=== PATIENT | female | born 1940 | race Caucasian/White ===

== ENCOUNTER 2017-07-02 09:33 | Inpatient (IN) | payer OTHER ==
[2017-06-12 12:54] VITALS: BMI 40.0
--- NOTE | 2017-06-12 13:29 | PAT Medication Instructions ---
Service Date Jun 12, 2017. Current Home Medication List Albuterol Hfa (Ventolin Hfa), 2 PUFFS INH Q6H PRN for PRN Amitriptyline Hcl (Elavil), 10 MG PO QPM Calcium Carbonate-Vitamin D (Calcium + D), 1 TAB PO QAM Cyclosporine (Ophth) (Restasis), 1 DROP OP BID Fish Oil ([place]-3), 1 CAP PO BID Flurbiprofen (Ansaid), 100 MG PO BID Fluticasone Propionate (Nasal) (Flonase Allergy Relief), 2 SPRAYS INTNAS PRN Furosemide (Lasix), 40 MG PO QAM Gabapentin (Neurontin), 400 MG PO AM/PM Gabapentin (Neurontin), 800 MG PO HS Quvlotnsuds-Flnrdysnqrl-Ykf C- (Glucosamine Chondroitin), 1 TAB PO BID Lorazepam (Ativan), 0.5 MG PO QPM Losartan Potassium (Cozaar), 50 MG PO QAM Multivitamin (Multivitamin), 1 TAB PO QAM Omeprazole (Prilosec), 20 MG PO QAM Potassium Chloride (Klor-Con Sprinkle), 10 MEQ PO QAM Vitamin E (Alph-E), 400 UNITS PO QAM [Areds], 1 TAB PO BID [Vitamin D], 1 TAB PO QAM Medication Instructions For Your Scheduled Surgery - Hold the following medications 2 weeks prior to surgery: Vitamin E (Alph-E), 400 UNITS PO QAM [Areds], 1 TAB PO BID Ltimbypehut-Ahbrafvzyyf-Mvf C- (Glucosamine Chondroitin), 1 TAB PO BID Fish Oil ([place]-3), 1 CAP PO BID - Check with surgeon for instructions: Flurbiprofen (Ansaid), 100 MG PO BID - Hold the following medications the morning of surgery: Calcium Carbonate-Vitamin D (Calcium + D), 1 TAB PO QAM Furosemide (Lasix), 40 MG PO QAM Losartan Potassium (Cozaar), 50 MG PO QAM Multivitamin (Multivitamin), 1 TAB PO QAM Potassium Chloride (Klor-Con Sprinkle), 10 MEQ PO QAM [Vitamin D], 1 TAB PO QAM - Take the following medications the morning of surgery with a sip of water: Omeprazole (Prilosec), 20 MG PO QAM Gabapentin (Neurontin), 400 MG PO AM/PM Fluticasone Propionate (Nasal) (Flonase Allergy Relief), 2 SPRAYS INTNAS PRN ( if needed) Cyclosporine (Ophth) (Restasis), 1 DROP OP BID Albuterol Hfa (Ventolin Hfa), 2 PUFFS INH Q6H PRN for PRN (if needed) - Take the following medications as scheduled the night before surgery: Lorazepam (Ativan), 0.5 MG PO QPM Gabapentin (Neurontin), 400 MG PO AM/PM Gabapentin (Neurontin), 800 MG PO HS Fluticasone Propionate (Nasal) (Flonase Allergy Relief), 2 SPRAYS INTNAS PRN ( if needed) Cyclosporine (Ophth) (Restasis), 1 DROP OP BID Amitriptyline Hcl (Elavil), 10 MG PO QPM Albuterol Hfa (Ventolin Hfa), 2 PUFFS INH Q6H PRN for PRN (if needed) If you have any questions please call us at [phone] or [phone] or [phone]
--- NOTE | 2017-06-12 14:22 | DIAGNOSTIC IMAGING REPORT ---
TWO VIEW CHEST CLINICAL HISTORY: Preoperative examination. FINDINGS: PA and lateral chest radiographs are obtained. No prior studies are available for comparison at the time of dictation. The heart is top normal for projection. The mediastinal contour is within normal limits. The lungs and pleural spaces are clear. There is no pneumothorax. The skeletal structures are osteopenic. Degenerative change and scoliosis are noted in the thoracic spine. Cholecystectomy clips are identified in the right upper quadrant. IMPRESSION: No active disease in the chest. Electronically signed by: Josiah Drummond M.D. 06/12/2017 2:21 PM Dictated Date/Time: 06/12/2017 2:19 PM
[2017-06-12 15:51] LABS: CREATININE 0.82 mg/dl (0.60-1.20); POTASSIUM 4.3 mmol/L (3.5-5.1)
[2017-06-12 16:20] LABS: BASO % 0.7 %; BASO ABS # 0.04 K/uL (0-0.2); EOS % 5.5 %; EOS ABS # 0.31 K/uL (0-0.5); HEMATOCRIT 41.1 % (37-47); HEMOGLOBIN 14.8 g/dL (12.0-16.0); IG# 0.01 K/uL (0.00-0.02); LYMPH % 31.9 %; MEAN CELL VOLUME 94.3 fL (80-100); MEAN CORPUSCULAR HEMOGLOBIN 33.9 pg (25-34); MONO % 11.2 %; MONO ABS # 0.63 K/uL (0.11-0.59); NEUT % 50.5 %; NEUT ABS # 2.85 K/uL (1.4-6.5); PLATELET COUNT 211 K/uL (130-400); WHITE BLOOD COUNT 5.64 K/uL (4.8-10.8)
[~2017-07-02] VITALS: Ht 152.4 cm; Wt 92.6 kg
[~2017-07-02 09:33] MED LIST: AMT50 PO; AREDS PO; CALC600T9 PO; CEFAZOLIN 2000MG IV PUSH 15 ML IV SCH; CYCL0.052 OP; FLUR100T PO; FLUT0.15 INTNAS; FRS/40 PO; GABA-1220 PO; GABA800T PO; GLUCTAB7 PO; LACTATED RINGER'S 1000ML 1,000 ML IV SCH; LORA-741 PO; LOSA50TA6 PO; MULT-506 PO; OMEG10007 PO; POTA1CAP53 PO; PRLSR20 PO; VITA400C28 PO; VITAMIN D PO; VNTHFA/IN INH
[2017-07-02 10:00] VITALS: BP 170/88; PULSE 88; TEMP 36.7; O2SAT 97; Ht 152.4 cm; Wt 92.6 kg
[2017-07-02] MEDS ORDERED: TRAM-10 PO (10:20)
[2017-07-02] MEDS ORDERED: FENTANYL CITRATE INJ 50 MCG/1 ML 2 ML VIAL ONE ×4 (11:37→13:57)
[2017-07-02] MEDS ORDERED: MIDAZOLAM HCL 1 MG/ML 2ML VIAL ONE (11:37)
--- NOTE | 2017-07-02 11:47 | History & Physical Bridge Note ---
H&P Re-Evaluation Bridge Note: I have examined the patient, reviewed the History & Physical and in the interval since the performance of the History & Physical I have noted the following changes of clinical significance: No changes noted
--- NOTE | 2017-07-02 11:48 | History and Physical ---
History & Physical Date Jul 02, 2017. Chief Complaint Back and leg pain History of Present Illness The patient is a 77 year old female with complaints of back and leg pain Additional History Hepatic Disease: No Endocrine Disorder: No Kidney Disease: No Hypertension: Yes Heart Disease: No Bleeding Tendencies: No Infectious Diseases: No Allergies Coded Allergies: Sulfa Antibiotics (Verified Allergy, Intermediate, HIVES ALL OVER, 07/02/17 ) Home Medications Scheduled Amitriptyline Hcl (Elavil), 10 MG PO QPM Calcium Carbonate-Vitamin D (Calcium + D), 1 TAB PO QAM Cyclosporine (Ophth) (Restasis), 1 DROP OP BID Fish Oil ([place]-3), 1 CAP PO BID Flurbiprofen (Ansaid), 100 MG PO BID Fluticasone Propionate (Nasal) (Flonase Allergy Relief), 2 SPRAYS INTNAS PRN Furosemide (Lasix), 40 MG PO QAM Gabapentin (Neurontin), 400 MG PO AM/PM Gabapentin (Neurontin), 800 MG PO HS Ejxsjjionlq-Onmsprmulht-Evz C- (Glucosamine Chondroitin), 1 TAB PO BID Lorazepam (Ativan), 0.5 MG PO QPM Losartan Potassium (Cozaar), 50 MG PO QAM Multivitamin (Multivitamin), 1 TAB PO QAM Omeprazole (Prilosec), 20 MG PO QAM Potassium Chloride (Klor-Con Sprinkle), 10 MEQ PO QAM Vitamin E (Alph-E), 400 UNITS PO QAM [Areds], 1 TAB PO BID [Vitamin D], 1 TAB PO QAM Scheduled PRN Albuterol Hfa (Ventolin Hfa), 2 PUFFS INH Q6H PRN for PRN Tramadol (Ultram), 50 MG PO Q4H PRN for Pain Physical Examination Skin: warm/dry, no rash Eyes: normal inspection, EOMI, sclerae normal ENT: normal ENT inspection, pharynx normal Head: normocephalic, atraumatic Neck: supple, no adenopathy, trachea midline Respiratory/Chest: lungs clear, normal breath sounds, no respiratory distress Cardiovascular: regular rate, rhythm, no edema, no murmur Abdomen / GI: normal bowel sounds, non tender Back: normal inspection Extremities: normal inspection, normal range of motion Neurologic/Psych: no motor/sensory deficits, alert, normal reflexes, oriented x 3 Diagnosis Lumbar spinal stenosis with spondylolisthesis Plan of Treatment L4-S1 decompression and fusion possible L3-4
[2017-07-02] MEDS ORDERED: BACITRACIN 50000 UNIT VIAL ONE (12:05)
[2017-07-02] MEDS ORDERED: BUPIVACAINE/EPINEPHRINE 0.5% MPF 1:200,000 30 ML VIAL ONE (12:05)
[2017-07-02] MEDS ORDERED: HYDROmorphone INJ 2 MG/ML SYR/VIAL ONE ×2 (12:46→14:16)
[2017-07-02] MEDS ORDERED: EpHEDrine SULFATE INJ 50 MG/ML AMP IV PRN (13:00)
[2017-07-02] MEDS ORDERED: MoRPHine SULFATE 10 MG/ML CARP/VIAL IV PRN (13:00)
[2017-07-02] MEDS ORDERED: ONDANSETRON INJ 2 MG/ML 2 ML VIAL IV PRN ×2 (13:00→14:15)
[2017-07-02] MEDS ORDERED: ATROPINE SULFATE 0.1 MG/ML 5ML SYR IV PRN (13:00)
[2017-07-02] MEDS ORDERED: KETOROLAC TROMETHAMINE 30 MG/ML VIAL ONE ×2 (14:00→14:18)
[2017-07-02] MEDS ORDERED: PROPOFOL IV EMULSION 10 MG/ML 20 ML VIAL IV ONE (14:00)
[2017-07-02] MEDS ORDERED: ONDANSETRON INJ 2 MG/ML 2 ML VIAL ONE ×2 (14:00→14:18)
[2017-07-02] MEDS ORDERED: RANITIDINE HCL 25 MG/ML INJ ONE (14:00)
[2017-07-02] MEDS ORDERED: DEXAMETHASONE SOD INJ 4 MG/ML VIAL ONE (14:00)
[2017-07-02] MEDS ORDERED: LIDOCAINE HCL 2% 2 ML VIAL (20MG/ML) ONE (14:00)
[2017-07-02] MEDS ORDERED: FLOSEAL HEMOSTATIC MATRIX 10ML TOP ONE (14:05)
[2017-07-02] MEDS ORDERED: DO NOT ADMINISTER PNEUMOCOCCAL VACCINE PRN (14:15)
[2017-07-02] MEDS ORDERED: DC PCA PRN (14:15)
[2017-07-02] MEDS ORDERED: SODIUM CHLORIDE 0.9% 1000ML 1,000 ML IV SCH (14:15)
[2017-07-02] MEDS ORDERED: DO NOT ADMINISTER FLU VACCINE PRN (14:15)
[2017-07-02] MEDS ORDERED: CEFAZOLIN IV 2,000 MG in DEXTROSE 5% 50ML 50 ML IV SCH (14:15)
[2017-07-02] MEDS ORDERED: ACETAMINOPHEN IV 100 ML IV PRN (14:15)
[2017-07-02] MEDS ORDERED: LORAZEPAM 0.5 MG TAB PO PRN (14:15)
[2017-07-02] MEDS ORDERED: SOD PHOSPHATE/SOD BIPHOSPHATE ENEMA 132 ML BTL PR PRN (14:15)
[2017-07-02] MEDS ORDERED: ALBUTEROL HFA 8 GM INHALER INH PRN (14:15)
[2017-07-02] MEDS ORDERED: NALOXONE HCL 0.4 MG/1 ML VIAL/CARP IV PRN (14:15)
[2017-07-02] MEDS ORDERED: PROMETHAZINE HCL INJ 12.5 MG in SODIUM CHLORIDE 0.9% 50ML 50 ML IV PRN (14:15)
[2017-07-02] MEDS ORDERED: METOCLOPRAMIDE HCL INJ 5 MG/ML 2 ML VIAL IV PRN (14:15)
[2017-07-02] MEDS ORDERED: LORAZEPAM INJ 0.5 MG in SYRINGE 0 ML IV PRN (14:15)
[2017-07-02] MEDS ORDERED: FAMOTIDINE 20 MG TAB PO PRN (14:15)
[2017-07-02] MEDS ORDERED: MAGNESIUM HYDROXIDE SUSP 30 ML UDC PO PRN (14:15)
[2017-07-02] MEDS ORDERED: hydrOXYzine HCL 25 MG TAB PO PRN (14:15)
[2017-07-02] MEDS ORDERED: HYDROmorphone HCL 0.5MG/ML 50 ML CASSETTE IV PRN (14:15)
[2017-07-02] MEDS ORDERED: ALUMINUM/MAGNESIUM SUSP 30 ML UDC PO PRN (14:15)
[2017-07-02] MEDS ORDERED: BISACODYL 10 MG SUPP PR PRN (14:15)
--- NOTE | 2017-07-02 14:15 | [facility] Operative Report ---
Operative Report Operative Date Jul 02, 2017. Pre-Operative Diagnosis Lumbar Spinal Stenosis Post-Operative Diagnosis Same as preop Procedure(s) Performed 1. Lumbar decompression medial facetectomy foraminotomy L3-4 L4-5 L5-S1. #2 posterior spinal fusion L4-5 L5-S1. #3 placement posterior segmental instrumentation L4-5 L5-S1. #4 placement of locally harvested Camp's Artegraft in the posterior lateral gutters. #5 placement of infuse: Sponge combined with master graft in the posterior lateral gutters. Surgeon Dr. La Fashion Marketer Surgeon(s) Jenny Diana PA-C Estimated Blood Loss 175Ml Findings Severe spinal stenosis Specimens none per surgeon Anesthesia Type General Description of Procedure Patient was met with preoperatively case discussed all questions addressed. After informed consent obtained patient was taken to the operative suite underwent intubation and placed in a prone position on the Tanner table on top of the Julian frame. All bony prominences were well-padded eyes inspected to ensure no external pressure placed upon them. This point the lumbar spine was prepped and draped in normal sterile fashion. Sharp dissection with the assistance of Bovie cautery was then performed down to and exposing the lamina and transverse processes L4-L5 and sacral ala bilaterally. From a caudal cephalad fashion complete laminectomy of L5 L4 and partial laminectomy of L3 was performed addressing severe lateral recess and foraminal stenosis. Pedicle screws were then placed in L4-L5 S1 levels bilaterally with the assistance of fluoroscopy and appropriate size lauren locked in position. The transverse processes of L4-L5 and sacral ala burred to subcortical bleeding bone. Infuse collagen sponge mesh graft and locally harvested morselized autograft placed in the posterior lateral gutters. 15 round SALVATORE drain inserted. Incision was then closed with 1 Vicryl fascia 2-0 Vicryl subcutaneously and 4-0 Monocryl for final skin closure Steri-Strips sterile dressings placed. Patient will continue to PACU stable condition. Please note Jenny Marroquin was present throughout the entire procedure involved in patient positioning complex portions of the surgery and fashion closure. I attest to the content of the Intraoperative Record and any orders documented therein. Any exceptions are noted below.
[2017-07-02] MEDS ORDERED: NEOSTIGMINE METHYLSULFATE 1 MG/ML 10ML VIAL ONE (14:18)
[2017-07-02] MEDS ORDERED: GLYCOPYRROLATE INJ 0.2 MG/ML VIAL ONE (14:18)
--- NOTE | 2017-07-02 14:27 | DIAGNOSTIC IMAGING REPORT ---
LUMBAR SPINE 2 OR 3 VIEW CLINICAL HISTORY: L4-S1 DECOMPRESSION/FUSION TECHNIQUE: Image intensifier COMPARISON STUDY: None FINDINGS: Image intensifier was utilized for operative assistance for a fusion of L4-L5 and S1. IMPRESSION: Image intensifier assistance for a fusion at L4-L5 and S1. The above report was generated using voice recognition software. It may contain grammatical, syntax or spelling errors. Electronically signed by: Tom Fong M.D. 07/02/2017 2:26 PM Dictated Date/Time: 07/02/2017 2:25 PM
[2017-07-02] MEDS ORDERED: HYDROmorphone HCL 0.5MG/ML 50 ML CASSETTE ONE (14:34)
[2017-07-02] MEDS: FENTANYL CITRATE INJ 50 MCG/1 ML 2 ML VIAL IV PRN ×2 (14:50→14:56)
--- NOTE | 2017-07-02 15:20 | Anesthesiology Progress Note ---
Anesthesia Post Op Note Date & Time Jul 02, 2017 at 15:20 Vital Signs Pain Intensity: 4 Vital Signs Past 12 Hours Date Time Temp Pulse Resp B/P (MAP) Pulse Ox O2 Delivery O2 Flow Rate FiO2 07/02/17 15:10 36.4 78 16 165/89 97 Nasal Cannula 3 07/02/17 15:00 75 16 167/67 97 Oxymask 3 07/02/17 14:50 75 16 175/92 97 Oxymask 5 07/02/17 14:40 76 16 164/88 96 Oxymask 5 07/02/17 14:31 36.5 81 14 179/96 96 Oxymask 5 07/02/17 10:00 36.7 88 18 170/88 97 Room Air Notes Mental Status: alert / awake / arousable, participated in evaluation Pt Amnestic to Procedure: Yes Nausea / Vomiting: adequately controlled Pain: adequately controlled Airway Patency, RR, SpO2: stable & adequate BP & HR: stable & adequate Hydration State: stable & adequate Anesthetic Complications: no major complications apparent
[2017-07-02 15:22] VITALS: BP 149/88; PULSE 78; TEMP 36.8; O2SAT 98
[2017-07-02 15:25] VITALS: O2SAT 98
[2017-07-02] MEDS: SODIUM CHLORIDE 0.9% 1000ML 1,000 ML IV SCH ×2 (15:36→22:10)
[2017-07-02 15:58] VITALS: BP 118/75; PULSE 79; TEMP 36.6; O2SAT 99
[2017-07-02 16:19] VITALS: BP 145/81; PULSE 58; O2SAT 99
[2017-07-02] MEDS: GABAPENTIN 400 MG CAP PO SCH (18:20)
[2017-07-02] MEDS: CEFAZOLIN IV 2,000 MG in SYRINGE 0 ML IV SCH (20:00)
[2017-07-02] MEDS ORDERED: GABAPENTIN 400 MG CAP PO SCH (21:00)
[2017-07-02] MEDS: AMITRIPTYLINE HCL 10 MG TAB PO SCH (21:00)
[2017-07-02] MEDS: LORAZEPAM 0.5 MG TAB PO SCH (21:00)
[2017-07-02] MEDS: GABAPENTIN 800 MG TAB PO SCH (21:00)
[2017-07-02] MEDS: DOCUSATE SODIUM/SENNA 50/8.6MG TAB PO SCH (21:00)
[2017-07-02 23:13] VITALS: BP 110/65; PULSE 87; TEMP 36.8; O2SAT 94
[2017-07-03 03:13] VITALS: BP 103/64; PULSE 87; TEMP 36.8; O2SAT 96
[2017-07-03] MEDS: CEFAZOLIN IV 2,000 MG in SYRINGE 0 ML IV SCH (04:03)
[2017-07-03] MEDS: SODIUM CHLORIDE 0.9% 1000ML 1,000 ML IV SCH (04:09)
[2017-07-03] MEDS ORDERED: NURSING VERBAL MED ORDER ONE (05:30)
--- NOTE | 2017-07-03 05:47 | Clinical Documentation Query ---
CLINICAL DOCUMENTATION QUERY 77-y/o female who has undergone L4-S1 fusion. The H&P only states this patient as having HTN, but home medications indicate other medical issues. This patient is on Ventolin, Elavil, and Lasix. In your clinical opinion is this patient being managed for: ( ) Chronic diastolic (preserved EF) heart failure treated with diuretic and antihypertensives ( ) Asthma treated with PRN Ventolin ( ) Not Agree ( ) Other explanation of clinical findings (Please Explain) ( ) Unable to determine (Please Define) ( ) Need to Discuss The medical record reflects the following clinical findings, treatment, and risk factors. Clinical Indicators: As above. Treatment: Continued on above home medications while inpatient Risk Factors: Prescribe above home medications. Please clarify and document your clinical opinion in the progress notes and discharge summary. Terms such as "probable", "suspected", "likely", "questionable", "possible", or "still to be ruled out" are acceptable. IF IN AGREEMENT, YOU MUST DOCUMENT ABOVE DIAGNOSTIC STATEMENT IN DAILY PROGRESS NOTES AND DISCHARGE SUMMARY. This document is not part of the patient's record. Thank You, Arun Fields, DOROTHY [phone]
[2017-07-03] MEDS ORDERED: HYDROmorphone INJ 0.5 MG/0.5 ML SYR IV PRN (06:00)
[2017-07-03] MEDS ORDERED: NALOXONE HCL 0.4 MG/1 ML VIAL/CARP IV PRN (06:00)
[2017-07-03 06:52] VITALS: BP 104/60; PULSE 81; TEMP 36.8; O2SAT 95
[2017-07-03 06:52] LABS: BASO % 0.1 %; BASO ABS # 0.01 K/uL (0-0.2); EOS % 0.1 %; EOS ABS # 0.01 K/uL (0-0.5); HEMATOCRIT 33.2 % (37-47); HEMOGLOBIN 11.8 g/dL (12.0-16.0); IG# 0.03 K/uL (0.00-0.02); LYMPH % 11.1 %; LYMPH ABS # 1.14 K/uL (1.2-3.4); MEAN CELL VOLUME 92.5 fL (80-100); MEAN CORPUSCULAR HEMOGLOBIN 32.9 pg (25-34); MEAN CORPUSCULAR HGB CONC 35.5 g/dl (32-36); MEAN PLATELET VOLUME 10.1 fL (7.4-10.4); MONO % 11.6 %; MONO ABS # 1.19 K/uL (0.11-0.59); NEUT % 76.8 %; NEUT ABS # 7.85 K/uL (1.4-6.5); PLATELET COUNT 180 K/uL (130-400); RED CELL DISTRIBUTION WIDTH CV 12.9 % (11.5-14.5); RED CELL DISTRIBUTION WIDTH SD 43.6 fL (36.4-46.3); WHITE BLOOD COUNT 10.23 K/uL (4.8-10.8)
[2017-07-03 07:21] LABS: CALCIUM 8.2 mg/dl (8.5-10.1); CREATININE 0.8 mg/dl (0.60-1.20); POTASSIUM 3.8 mmol/L (3.5-5.1)
[2017-07-03] MEDS: GABAPENTIN 400 MG CAP PO SCH ×2 (08:13→17:01)
[2017-07-03] MEDS: LOSARTAN POTASSIUM 50 MG TAB PO SCH (08:13)
[2017-07-03] MEDS: PANTOprazole SOD 40 MG TAB PO SCH (08:13)
[2017-07-03] MEDS: FUROSEMIDE 40 MG TAB PO SCH (08:14)
[2017-07-03] MEDS: ACETAMINOPHEN 500 MG TAB PO PRN ×2 (08:17→16:26)
[2017-07-03] MEDS ORDERED: RXC5 PO (11:06)
--- NOTE | 2017-07-03 11:07 | Discharge Instructions ---
Discharge Instructions Date of Service Jul 03, 2017. Admission Reason for Admission: Spinal Stenosis Discharge Discharge Diagnosis / Problem: lumbar stenosis Discharge Goals Goal(s): Improve function Activity Recommendations Activity Limitations: per Instructions/Follow-up section . Instructions / Follow-Up Instructions / Follow-Up ACTIVITY RECOMMENDATIONS: SELF CARE INSTRUCTIONS AFTER THORACIC/LUMBAR FUSIONS 1. You may walk to your tolerance. It is good exercise for your legs and back. Expect some back and intermittent leg aches and pains. 2. You may perform "counter-top" level activities (make a sandwich, sahil with a project, etc.). 3. No bending or lifting of more than 10 pounds or back twisting of any nature (roll like a log when turning in bed). 4. You may ride in a car for 20-30 minutes at a time. No driving until after your first visit with your doctor. 5. Frequent changes of position and restricting sitting to 30 minutes at a time will help limit the amount of back spasms and stiffness you may experience. 6. You may discontinue the use of ambulatory aids (cane, crutches, etc.) once your strength and confidence allow. 7. You may air pollution control engineer the shower and let water strike your incision when you arrive home at least once daily. Do not take a tub bath, sit in a hot tub or go into a swimming pool until after your first recheck in the office. SPECIAL CARE INSTRUCTIONS: VERY IMPORTANT TO READ AND REVIEW A. Your surgical incision has been closed with a cosmetic suture under the skin that will dissolve in about 6 weeks. In 14 days, you can use a pair of clean scissors and cut the suture that is left outside of the skin at the ends of your incision. 1. The small skin tapes can be removed 7 days after surgery if they have not fallen off by that point. 2. You may keep the wound open to air as much as possible to promote healing after post-op day number 5 unless told otherwise by your doctor. 3. If you think the wound looks like it is becoming infected (redness or worsening drainage) and/or you are experiencing fever, chill or worsening back pain and muscle spasms, contact the office so that we may evaluate you as soon as possible. B. Complications are uncommon, but please contact us if you have any signs or symptoms of: 1. wound infection (fever higher than 102.5 degrees F, redness, separation of wound, drainage, or increasing pain from the incision) 2. blood clots in legs (pain, swelling, redness and warmth in legs) 3. urinary tract infection (fever higher than 102.5 degrees F, burning upon urination or increased frequency of urination) 4. nerve problems (inability to walk on your toes or heels, numbness, loss of bowel or bladder control) 5. any other symptoms that concern you C. Please call the office at if you have any concerns or questions about your operation or recovery. D. No smoking! Smoking drastically decreases the chance of a solid fusion. E. Do not take any anti-inflammatory medications (Indocin, Advil, Motrin, Aspirin, Naprosyn, etc.) as these may inhibit the chance of a solid fusion. Tylenol is okay to take for pain. MANAGING PAIN AFTER SPINAL SURGERY 1. Narcotic medication is intended for short-term use and will be provided for surgical pain. Surgical pain usually lasts for a period of 4-6 weeks. Narcotic medication includes Percocet, Vicodin, Darvocet, Tylenol #3 or Lortab. 2. Longer-term pain is more appropriately treated with non-narcotic medication such as Tylenol ES. 3. Muscle spasm is not appropriately treated with narcotics. Muscle relaxers such as Soma, Flexeril or Skelaxin can be used along with Tylenol ES. 4. Remember that we all live with some "aches and pains". This is not unusual or uncommon after an injury or as we get older. a. Back pain is expected and may include muscle spasms for 4 to 6 weeks after surgery. The pain should gradually improve. If the pain worsens for no apparent reason, please contact the office. b. Intermittent leg pain may also be experienced and should not be concerned about unless it worsens for no apparent reason. If so, please contact the office. 5. We will provide appropriate medication within the normal guidelines of their prescribed use. We will also be very cautious and aware of potential abuse and extended duration of patients' medication needs. a. Pain medications are for your comfort and to assist with sleep and rest so that the tissue can heal. They are not provided in order to return to normal activity and should not be used through the day. To do so or worsening pain at night can result from ongoing tissue damage and development of tolerance to the prescribed medicine. 6. Please allow 2-3 days to process refills. Prescriptions will not be mailed but must be picked up at the office. FOLLOW UP VISIT: Keep your scheduled follow-up appointment. Any questions, please call the office at . Current Hospital Diet Patient's current hospital diet: Regular Diet Discharge Diet Recommended Diet: Regular Diet Procedures Procedures Performed: 1. Lumbar decompression medial facetectomy foraminotomy L3-4 L4-5 L5-S1. #2 posterior spinal fusion L4-5 L5-S1. #3 placement posterior segmental instrumentation L4-5 L5-S1. #4 placement of locally harvested Camp's Artegraft in the posterior lateral gutters. #5 placement of infuse: Sponge combined with master graft in the posterior lateral gutters. Pending Studies Studies pending at discharge: no Medical Emergencies . Who to Call and When: Medical Emergencies: If at any time you feel your situation is an emergency, please call 911 immediately. . Non-Emergent Contact Non-Emergency issues call your: Primary Care Provider . "Provider Documentation" section prepared by Charli La. .
[2017-07-03] MEDS: TRAMADOL HCL 50 MG TAB PO PRN ×3 (11:17→21:02)
--- NOTE | 2017-07-03 11:37 | Progress Note ---
Progress Note Date of Service Jul 03, 2017. Progress Note Patient's pain is well controlled. She is in a chair at the bedside. She was with her family. On exam she is excellent strength testing appears comfortable. Assessment status post lumbar decompression fusion per plan at this time will continue physical therapy advance her bowel regiment and anticipate discharge home this weekend.
[2017-07-03 15:27] VITALS: BP 111/68; PULSE 86; TEMP 37.3; O2SAT 97
[2017-07-03] MEDS: DOCUSATE SODIUM/SENNA 50/8.6MG TAB PO SCH (21:00)
[2017-07-03] MEDS: LORAZEPAM 0.5 MG TAB PO SCH (21:01)
[2017-07-03] MEDS: AMITRIPTYLINE HCL 10 MG TAB PO SCH (21:27)
[2017-07-03] MEDS: GABAPENTIN 800 MG TAB PO SCH (21:27)
[2017-07-03 22:50] VITALS: BP 122/71; PULSE 88; TEMP 37.3; O2SAT 94
[2017-07-04] MEDS ORDERED: NURSING VERBAL MED ORDER ONE (03:45)
[2017-07-04] MEDS: OXYCODONE HCL IR 5 MG TAB (IMMEDIATE RELEASE) PO PRN ×6 (04:20→23:18)
[2017-07-04] MEDS ORDERED: POLYETHYLENE (MIRALAX) 17 GM PACK PO SCH (06:00)
--- NOTE | 2017-07-04 07:38 | Orthopedic Progress Note ---
Orthopedic Progress Note Date of Service Jul 04, 2017. Subjective Post OP Day: 2 Reports: feeling well Additional Notes: Patient is postoperative day 2 lumbar decompression fusion. She is doing well. Radicular leg pain has resolved. Back pain is controlled. SALVATORE drain output last shift was 65 cc. She has had a bowel movement within the past 24 hours. She is ambulating over 500 feet in physical therapy. Objective calves soft nontender, N/V intact, A&O x3, toes mobile She is lying in bed. She is in no obvious distress. Calves are soft nontender bilaterally. Neurovascular intact bilateral lower extremities. Lumbar dressing is clean dry and intact. Date Time Temp Pulse Resp B/P (MAP) Pulse Ox O2 Delivery O2 Flow Rate FiO2 07/03/17 23:45 Room Air 07/03/17 22:50 37.3 88 16 122/71 (88) 94 Room Air 07/03/17 15:45 Room Air 07/03/17 15:27 37.3 86 18 111/68 (82) 97 Room Air 07/03/17 08:00 Room Air Assessment & Plan Assessment: Postoperative day 2 lumbar decompression fusion Plan: We will maintain SALVATORE drain today. Continue with physical therapy. Continue with pain control. DVT prophylaxis is in the form of teds and SCDs. Anticipate discharge home tomorrow. Inhouse Planning Pain Management: Oxy IR DVT Prophylaxis: TEDs, SCDs Discharge Planning Discharge Planning: home
[2017-07-04 07:40] VITALS: BP 108/67; PULSE 86; TEMP 37.2; O2SAT 94
[2017-07-04] MEDS: FUROSEMIDE 40 MG TAB PO SCH (09:05)
[2017-07-04] MEDS: PANTOprazole SOD 40 MG TAB PO SCH (09:06)
[2017-07-04] MEDS: LOSARTAN POTASSIUM 50 MG TAB PO SCH (09:06)
[2017-07-04] MEDS: GABAPENTIN 400 MG CAP PO SCH ×2 (09:30→16:42)
[2017-07-04 15:06] VITALS: BP 132/78; PULSE 93; TEMP 37.1; O2SAT 93
[2017-07-04] MEDS: DOCUSATE SODIUM/SENNA 50/8.6MG TAB PO SCH (20:32)
[2017-07-04] MEDS: AMITRIPTYLINE HCL 10 MG TAB PO SCH (20:33)
[2017-07-04] MEDS: GABAPENTIN 800 MG TAB PO SCH (20:33)
[2017-07-04] MEDS: LORAZEPAM 0.5 MG TAB PO SCH (20:33)
[2017-07-04 22:47] VITALS: BP 116/68; PULSE 97; TEMP 37.3; O2SAT 93
[2017-07-05] MEDS: OXYCODONE HCL IR 5 MG TAB (IMMEDIATE RELEASE) PO PRN ×2 (05:42→10:07)
[2017-07-05 06:55] VITALS: BP 111/73; PULSE 81; TEMP 37.3; O2SAT 93
--- NOTE | 2017-07-05 08:00 | Orthopedic Progress Note ---
Orthopedic Progress Note Date of Service Jul 05, 2017. Subjective Post OP Day: 3 Reports: feeling well Additional Notes: Evette's postoperative day 3 lumbar decompression fusion. She is doing fantastic. No radicular leg pain. Back pain is controlled. SALVATORE drain output last shift was 30 cc. She is AMBULATING 275 feet yesterday physical therapy plus the hallways. She has no other complaints. Objective calves soft nontender, N/V intact, dressing C/D/I, A&O x3 She sitting in a chair in no obvious distress. Calves are soft nontender bilaterally. Neurovascular intact bilaterally. Lumbar dressing is clean dry and intact. Date Time Temp Pulse Resp B/P (MAP) Pulse Ox O2 Delivery O2 Flow Rate FiO2 07/05/17 06:55 37.3 81 16 111/73 (86) 93 Room Air 07/04/17 23:55 Room Air 07/04/17 22:47 37.3 97 17 116/68 (84) 93 Room Air 07/04/17 15:06 37.1 93 20 132/78 (96) 93 Room Air 07/04/17 15:00 Room Air 07/04/17 08:00 Room Air Assessment & Plan Assessment: Postoperative day 3 lumbar decompression fusion Plan: We will DC SALVATORE drain and dressing change. We will discharge her home today. All questions were answered in detail. All instructions reviewed. She will follow-up in the office in 2 weeks. Inhouse Planning Pain Management: Oxy IR DVT Prophylaxis: Nena Harman Discharge Planning Discharge Planning: home Pain Management: Oxy IR DVT Prophylaxis: Ghazal
--- NOTE | 2017-07-05 08:04 | Discharge Summary ---
Orthopedic Discharge Summary Admission Date/Reason Jul 02, 2017 at 14:19 Spinal Stenosis. Discharge Date/Disposition Jul 05, 2017 Home Diagnosis Principal Diagnosis: Lumbar spinal stenosis Procedure(s) Performed Posterior lumbar decompression with instrumented fusion L4-5, L5-S1 Medication Reconciliation New Medications: Oxycodone HCl (Oxycodone HCl) 5 Mg Tab 5-10 MG PO Q4H PRN for Moderate - severe pain for 30 Days, #60 TAB Continued Medications: Albuterol Hfa (Ventolin Hfa) 200 Puffs/82213 Mcg Aers 2 PUFFS INH Q6H PRN for PRN, #1 INHALER Amitriptyline Hcl (Elavil) 50 Mg Tab 10 MG PO QPM, TAB Calcium Carbonate-Vitamin D (Calcium + D) 1 Tab Tab 1 TAB PO QAM Cyclosporine (Ophth) (Restasis) 0.05 % Emu 1 DROP OP BID, BTL Fish Oil ([place]-3) 1 Ea Cap 1 CAP PO BID, CAP Flurbiprofen (Ansaid) 100 Mg Tab 100 MG PO BID, TAB Fluticasone Propionate (Nasal) (Flonase Allergy Relief) 50 Mcg/Act Spr 2 SPRAYS INTNAS PRN Furosemide (Lasix) 40 Mg Tab 40 MG PO QAM, TAB Gabapentin (Neurontin) 400 Mg Cap 400 MG PO AM/PM, CAP Gabapentin (Neurontin) 800 Mg Tab 800 MG PO HS, TAB Fgzvcouoojj-Mezypktpnzs-Fmw C- (Glucosamine Chondroitin) 1 Tab Tab 1 TAB PO BID Lorazepam (Ativan) 0.5 Mg Tab 0.5 MG PO QPM, TAB Losartan Potassium (Cozaar) 50 Mg Tab 50 MG PO QAM, TAB Multivitamin (Multivitamin) Tab 1 TAB PO QAM, TAB Omeprazole (Prilosec) 20 Mg Capcr 20 MG PO QAM, CAP Potassium Chloride (Klor-Con Sprinkle) 10 Meq Cap 10 MEQ PO QAM Tramadol (Ultram) 50 Mg Tab 50 MG PO Q4H PRN for Pain, TAB Vitamin E (Alph-E) 400 Unit Cap 400 UNITS PO QAM [Areds] () 1 TAB PO BID [Vitamin D] () 1 TAB PO QAM Admission Physical Exam As per Admitting History & Physical. Hospital Course Evette had an uncomplicated hospital course. She has been making progress with physical therapy. Lab values have been stable. Pain is being controlled. She was discharged home on postoperative day 3. Discharge Instructions Please refer to the electronic Patient Visit Report (Discharge Instructions) for additional information.
[2017-07-05] MEDS: PANTOprazole SOD 40 MG TAB PO SCH (08:13)
[2017-07-05] MEDS: GABAPENTIN 400 MG CAP PO SCH (08:13)
[2017-07-05] MEDS: LOSARTAN POTASSIUM 50 MG TAB PO SCH (08:13)
[2017-07-05] MEDS: FUROSEMIDE 40 MG TAB PO SCH (08:15)
[2017-07-05 09:46] VITALS: BP 111/73; PULSE 81; TEMP 37.3; O2SAT 93
[2017-07-05] MEDS: ACETAMINOPHEN 500 MG TAB PO PRN (11:40)
== END 2017-07-05 12:00 | disposition home or self-care (01) | DRG 460 ==
LOC: C.ACU 09:33 → C.3E 14:19 → ENRESERV 15:08
PROVIDERS: ADMIT Orthopaedic Surgery Orthopaedic Surgery of the Spine; ATTEND Orthopaedic Surgery Orthopaedic Surgery of the Spine
PROC: 0SG0071 Fusion of Lumbar Vertebral Joint with Autologous Tissue Substitute, Posterior Approach, Posterior Column, Open Approach (ICD-10-PCS; principal; 2017-07-02 11:45)
PROC: 0SG3071 Fusion of Lumbosacral Joint with Autologous Tissue Substitute, Posterior Approach, Posterior Column, Open Approach (ICD-10-PCS; principal; 2017-07-02 11:45)
PROC: 01NB0ZZ Release Lumbar Nerve, Open Approach (ICD-10-PCS; principal; 2017-07-02 11:45)
DX: M48.061 Spinal stenosis, lumbar region without neurogenic claudication (principal); M43.16 Spondylolisthesis, lumbar region; I10 Essential (primary) hypertension; J45.909 Unspecified asthma, uncomplicated; K21.9 Gastro-esophageal reflux disease without esophagitis; Z79.899 Other long term (current) drug therapy; Z88.2 Allergy status to sulfonamides